=== PATIENT | male | born 1980 | race Caucasian/White ===

== ENCOUNTER 2020-08-03 14:32 | Outpatient (REF) | payer MEDICARE, MEDICAID, SELFPAY | END 2020-08-03 14:33 | disposition home or self-care (01) | LOC: HO.LAB 14:32 | PROVIDERS: Visit Provider Internal Medicine | DX: Z20.822 Contact with and (suspected) exposure to COVID-19 (principal) | CPT/HCPCS: 36415; C9803; U0003; U0005 ==

== ENCOUNTER 2021-05-07 15:27 | Outpatient (REF) | payer MEDICARE, MEDICAID, SELFPAY ==
[2021-05-07 16:37] LABS: COVID-19 Test Negative (Negative)
== END 2021-05-07 15:28 | disposition home or self-care (01) ==
LOC: HO.LAB 15:27
PROVIDERS: Visit Provider Internal Medicine
DX: Z20.822 Contact with and (suspected) exposure to COVID-19 (principal)
CPT/HCPCS: 36415; 87635; C9803